=== PATIENT | female | born 2000 | race African-American/Black ===

== ENCOUNTER 2020-10-29 11:31 | Emergency (ER) | payer MEDICAID ==
[~2020-10-29] VITALS: Ht 165.1 cm; Wt 84.4 kg
--- NOTE | 2020-10-29 13:03 | NUR ---
PT IS IN ROOM #2B. DR NEGRETE EVALUATED THE PT.
--- NOTE | 2020-10-29 14:12 | NUR ---
PT WAS D/C'd TO HOME. D/C INSTRUCTIONS GIVEN TO THE PT BY DR NEGRETE.
[2020-10-29 14:16] VITALS: BP 136/78
== END 2020-10-29 14:17 | disposition home or self-care (01) ==
LOC: ER 11:31
DX: O26.892 Other specified pregnancy related conditions, second trimester (principal); S83.004A Unspecified dislocation of right patella, initial encounter; X50.1XXA Overexertion from prolonged static or awkward postures, initial encounter; Y92.89 Other specified places as the place of occurrence of the external cause; Z3A.27 27 weeks gestation of pregnancy
CPT/HCPCS: 73562; A4663